=== PATIENT | female | born 1995 | race Caucasian/White ===

== ENCOUNTER 2023-03-01 18:44 | Emergency (ER) | payer MEDICAID ==
[~2023-03-01] VITALS: Ht 167.6 cm; Wt 91.0 kg
[2023-03-01 19:04] VITALS: O2SAT 98
[2023-03-01 19:34] LABS: BASOPHILS % 0.7 % (0.0-2.0); EOSINOPHILS % 0.9 % (0.0-5.0); HEMATOCRIT. 27.5 % (36.0-48.0); HEMOGLOBIN. 8.7 g/dL (12.0-16.0); LYMPHOCYTES % 17.1 % (20.0-50.0); MEAN CORPUSCULAR VOLUME 63.5 fL (81.0-99.0); MONOCYTES % 6.4 % (2.0-8.0); NEUTROPHILS % 74.9 % (40.0-76.0); PLATELET 425 x1000/uL (130-400); RED BLOOD CELL COUNT 4.33 mill/uL (4.2-5.4); RED CELL DISTRIBUTION WIDTH 16.4 % (11.6-14.6)
[2023-03-01 19:35] LABS: CHLORIDE 106 mEq/L (98-107)
[2023-03-01 20:54] LABS: PLATELET ESTIMATE INCREASED
[2023-03-01] MEDS ORDERED: SODIUM CHLORIDE 0.9% 1,000 ML IV ONE (21:00)
[2023-03-01] MEDS ORDERED: ONDANSETRON HCL 4MG/2ML INJ IV STA (21:00)
[2023-03-01 22:22] LABS: CLARITY URINE CLOUDY (CLEAR); COLOR URINE DARK YELLOW (YELLOW); KETONES URINE TRACE (NEGATIVE); LEUKOCYTE ESTERASE URINE 2+ (NEGATIVE); NITRITE URINE POSITIVE (NEGATIVE); OCCULT BLOOD URINE NEGATIVE (NEGATIVE); PROTEIN URINE 1+ (NEGATIVE); SPECIFIC GRAVITY URINE 1.026 (1.005-1.030)
[2023-03-01] MEDS ORDERED: CEFTRIAXONE SODIUM 1 G/VIAL IM NR (22:30)
[2023-03-02] MEDS ORDERED: CEPH500C2 MT (00:54)
[2023-03-02] MEDS ORDERED: CEFTRIAXONE 2 G in DEXTROSE 5% WATER 50 ML IV NR (01:30)
[2023-03-02] MEDS ORDERED: CEFTRIAXONE 2GM/50ML (ADDEASE) 50 ML IV ONE (01:30)
[2023-03-02] MEDS ORDERED: NITR-87 MT (02:03)
[2023-03-02] MEDS ORDERED: NITROFURANTOIN 100MG M/M CAPSULE PO ONE (02:15)
[2023-03-02 02:21] VITALS: BP 122/62; PULSE 87; RESP 14; TEMP 97.9
== END 2023-03-02 02:24 | disposition home or self-care (01) ==
LOC: ER 18:44
DX: O23.43 Unspecified infection of urinary tract in pregnancy, third trimester (principal); N39.0 Urinary tract infection, site not specified; Z3A.33 33 weeks gestation of pregnancy
CPT/HCPCS: 80053; 81003; 81025; 83690; 85025; 36415; 76818; 76805; 96361; 96374; 99285; J2405; J7030; Z7610 ×2; J0696; J7060